=== PATIENT | male | born 1995 | race Caucasian/White ===

== ENCOUNTER 2023-12-11 06:58 | Emergency (ER) | payer SELFPAY ==
[~2023-12-11] VITALS: Ht 170.2 cm; Wt 74.0 kg
[2023-12-11 07:10] VITALS: BP 152/107; PULSE 111; RESP 14; TEMP 98.2; O2SAT 99
[2023-12-11 07:46] LABS: BASOPHILS % 0.3 % (0.0-2.0); HEMATOCRIT. 45.8 % (42.0-52.0); HEMOGLOBIN. 15.7 g/dL (14.0-18.0); LYMPHOCYTES % 16.2 % (20.0-50.0); MEAN CORPUSCULAR HEMOGLOBIN 31.2 pg (28.0-32.0); MEAN CORPUSCULAR HGB CONC 34.1 g/dL (31.0-37.0); MEAN CORPUSCULAR VOLUME 91.3 fL (80.0-94.0); MEAN PLATELET VOLUME 10.7 fl (7.4-10.4); MONOCYTES % 12.2 % (2.0-8.0); NEUTROPHILS % 71.3 % (40.0-76.0); PLATELET 188 x1000/uL (130-400); RED BLOOD CELL COUNT 5.02 mill/uL (4.7-6.1); RED CELL DISTRIBUTION WIDTH 13.9 % (11.6-14.6); WHITE BLOOD COUNT 12.6 x1000/uL (4.5-11.0)
[2023-12-11 07:50] LABS: CHLORIDE 104 mEq/L (98-107); POTASSIUM 3.7 mEq/L (3.5-5.1); SODIUM 141 mEq/L (136-145)
[2023-12-11 07:51] LABS: CARBON DIOXIDE 26 mEq/L (21-32)
[2023-12-11 07:52] LABS: CALCIUM 10.1 mg/dL (8.7-10.4)
[2023-12-11 07:56] LABS: CREATININE 1.1 mg/dL (0.6-1.3); GLUCOSE 130 mg/dL (70-105)
[2023-12-11 07:57] LABS: UREA NITROGEN BLOOD 18 mg/dL (9-23)
[2023-12-11] MEDS: LORAZEPAM 1MG TABLET PO NR (08:42)
== END 2023-12-11 13:38 | disposition left against medical advice (07) ==
LOC: ER 07:58
DX: F15.90 Other stimulant use, unspecified, uncomplicated (principal)
CPT/HCPCS: 36415; 80048; 85025; 99283

== ENCOUNTER 2024-05-10 10:21 | Emergency (ER) | payer SELFPAY ==
[~2024-05-10] VITALS: Ht 170.2 cm; Wt 70.0 kg
[2024-05-10 10:25] VITALS: O2SAT 99
[2024-05-10 11:54] LABS: BASOPHILS % 0.6 % (0.0-2.0); HEMATOCRIT. 46.8 % (42.0-52.0); HEMOGLOBIN. 16.1 g/dL (14.0-18.0); LYMPHOCYTES % 14.4 % (20.0-50.0); MEAN CORPUSCULAR HEMOGLOBIN 30.8 pg (28.0-32.0); MEAN CORPUSCULAR HGB CONC 34.4 g/dL (31.0-37.0); MEAN CORPUSCULAR VOLUME 89.7 fL (80.0-94.0); MEAN PLATELET VOLUME 11.2 fl (7.4-10.4); MONOCYTES % 11.3 % (2.0-8.0); NEUTROPHILS % 73.7 % (40.0-76.0); PLATELET 240 x1000/uL (130-400); RED BLOOD CELL COUNT 5.21 mill/uL (4.7-6.1); RED CELL DISTRIBUTION WIDTH 14.5 % (11.6-14.6); WHITE BLOOD COUNT 10.3 x1000/uL (4.5-11.0)
[2024-05-10 12:00] LABS: CHLORIDE 104 mEq/L (98-107); POTASSIUM 3.9 mEq/L (3.5-5.1); SODIUM 140 mEq/L (136-145)
[2024-05-10 12:01] LABS: CARBON DIOXIDE 24 mEq/L (21-32)
[2024-05-10 12:02] LABS: CALCIUM 10.6 mg/dL (8.7-10.4)
[2024-05-10 12:06] LABS: CREATININE 1.1 mg/dL (0.6-1.3); GLUCOSE 143 mg/dL (70-105); UREA NITROGEN BLOOD 19 mg/dL (9-23)
[2024-05-10 12:08] LABS: ALANINE AMINOTRANSFERASE 114 IU/L (10-49); ALBUMIN 5.3 g/dL (3.2-4.8); ASPARTATE AMINOTRANSFERASE 143 IU/L (<34)
[2024-05-10 12:09] LABS: PROTEIN TOTAL 9.1 g/dL (6.0-8.3)
[2024-05-10 12:36] LABS: ETHANOL BLOOD < 10 mg/dL (<10)
[2024-05-10 12:52] VITALS: BP 124/81; PULSE 99; RESP 16; TEMP 37.05852; O2SAT 99
== END 2024-05-10 12:55 | disposition home or self-care (01) ==
LOC: ER 10:21
DX: F15.10 Other stimulant abuse, uncomplicated (principal)
CPT/HCPCS: 36415; 80053; 80320; 85025; 99283; 99284; G0480